=== PATIENT | male | born 1980 | race Caucasian/White ===

== ENCOUNTER 2017-09-17 12:56 | Emergency (ER) | payer MEDICAID ==
--- NOTE | 2017-09-17 14:14 | XRAY Preliminary Report ---
Exam: XR KNEE 4 VIEW LT IMPRESSION: No acute osseous abnormality with minimal/very early degenerative changes. [facility] SITE ID: [id number]
[2017-09-17] MEDS ORDERED: DEXAMETHASONE 10 MG/ML VIAL PO STA (14:21)
--- NOTE | 2017-09-17 14:24 | ED Physician Documentation ---
PD HPI LOWER EXT INJURY - Stated complaint Stated Complaint: L KNEE PAIN - Chief complaint Chief Complaint: Ext Problem - History obtained from History obtained from: Patient, Family - History of Present Illness PD HPI LOW EXT INJURY LOCATION: Left, Knee Type of injury: Twist Where injury occurred: Home Timing - onset: How many days ago (5) Timing - duration: Days (5) Timing - details: Abrupt onset, Still present Improved by: Rest, Ice, Immobilization Worsened by: Moving, Palpating Associated symptoms: Swelling. No: Weakness, Numbness Contributing factors: No: Anticoagulated Similar symptoms before: Diagnosis (has had injury to the other knee previously. ) Recently seen: Not recently seen - Additional information Additional information: Previously well 37-year-old male was seen in his attic at his home doing a project with his legs crossed underneath him. When he got up he had a sore left knee and he was able to go about his business he worked on the following day and over the last 2 days he has developed increased swelling and significant pain. He was unable to sleep last night secondary to excessive pain. He is having pain when he bears weight that will bring tears to his eyes. He has not had a fever. Review of Systems Constitutional: denies: Fever Eyes: denies: Decreased vision Ears: denies: Ear pain Nose: denies: Congestion Throat: denies: Sore throat Cardiac: denies: Chest pain / pressure Respiratory: denies: Dyspnea, Cough GI: denies: Abdominal Pain, Nausea, Vomiting : denies: Dysuria Musculoskeletal: reports: Joint pain, Joint swelling, Pain with weight bearing. denies: Neck pain, Back pain Neurologic: denies: Generalized weakness, Focal weakness, Numbness PD PAST MEDICAL HISTORY - Past Medical History Past Medical History: No - Past Surgical History Past Surgical History: Yes Ortho: ACL reconstruction - Present Medications Home Medications: Ambulatory Orders Medication Instructions Recorded Confirmed Ibuprofen [Motrin] 09/17/17 Tramadol HCl 50 - 100 mg PO Q6HR PRN #20 tablet 09/17/17 - Allergies Allergies/Adverse Reactions: Allergies Allergy/AdvReac Type Severity Reaction Status Date / Time acetaminophen [From Percocet] AdvReac Nausea Verified 09/17/17 13:25 oxycodone [From Percocet] AdvReac Nausea Verified 09/17/17 13:25 - Social History Does the pt smoke?: Yes Smoking Status: Current every day smoker Does the pt drink ETOH?: Yes Does the pt have substance abuse?: No - Immunizations Immunizations are current?: No Immunizations: TDAP >10years/unknown PD ED PE NORMAL - Vitals Vital signs reviewed: Yes (hypertension) - General General: Alert and oriented X 3, No acute distress, Well developed/nourished - HEENT HEENT: Atraumatic, PERRL - Respiratory Respiratory: No respiratory distress - Derm Derm: Normal color, Warm and dry, No rash - Extremities Extremities: No deformity, No edema, Other (There is mild point tenderness to the knee above the patella. There is a palpable effusion but the patella is not ballotable. There is no warmth or erythema to the joint. There is pain to ROM testing and the ligaments are stable to testing. The distal n/v is intact. ) - Neuro Neuro: Alert and oriented X 3, appraiser 2-12 intact, No motor deficit, No sensory deficit, Normal speech Eye Opening: Spontaneous Motor: Obeys Commands Verbal: Oriented GCS Score: 15 - Psych Psych: Normal mood, Normal affect Results - Vitals Vitals: Vital Signs - 24 hr 09/17/17 13:21 Temperature 36.2 C L Heart Rate 79 Respiratory 18 Rate Blood Pressure 143/87 H O2 Saturation 98 Oxygen O2 Source Room air - Rads (name of study) left knee Radiology: Prelim report reviewed (Impression: No osseous abnormality with minimal/very early degenerative changes.), EMP read indepedently, See rad report PD MEDICAL DECISION MAKING - ED course Complexity details: reviewed results, re-evaluated patient, considered differential, d/w patient, d/w family ED course: 37-year-old male with acute left knee pain appears to have a joint effusion and x-rays are without evidence of fracture. The patient is administered 10 mg of dexamethasone and the knee is Dinesh wrapped and we will provide him with some crutches as well as some pain medication. I did offer the patient arthrocentesis and he declined. Departure - Departure Disposition: 01 Home, Self Care Clinical Impression: Knee effusion, left Condition: Stable Instructions: ED Effusion Knee Follow-Up: [facility] [Provider Group] Prescriptions: Tramadol HCl 50 - 100 mg PO Q6HR PRN #20 tablet PRN Reason: Pain
--- NOTE | 2017-09-17 14:27 | XRAY Report ---
EXAM: LEFT KNEE RADIOGRAPHY EXAM DATE: 09/17/2017 02:01 PM. CLINICAL HISTORY: Pain after sitting with knees bent. COMPARISON: None. TECHNIQUE: 4 views. FINDINGS: Bones: No fracture. No suspicious osseous lesion. Small enthesophyte at the quadriceps insertion. Joints: No effusion. No subluxation. Minimal sharpening of the tibial spines and minimal osteophyte f ormation at the patella without significant joint space narrowing. Soft Tissues: Normal. No soft tissue swelling. IMPRESSION: No acute osseous abnormality with minimal/very early degenerative changes. [facility] Referring Provider Line: [phone] SITE ID: [id number]
[2017-09-17 14:31] VITALS: BP 130/79
== END 2017-09-17 14:38 | disposition home or self-care (01) ==
LOC: ED 12:56
DX: M25.462 Effusion, left knee (principal); X50.1XXA Overexertion from prolonged static or awkward postures, initial encounter; Y93.H3 Activity, building and construction; Y92.008 Other place in unspecified non-institutional (private) residence as the place of occurrence of the external cause; F17.200 Nicotine dependence, unspecified, uncomplicated
CPT/HCPCS: 99283

== ENCOUNTER 2018-02-04 09:53 | Outpatient (CLI) | payer MEDICAID ==
--- NOTE | 2018-02-04 14:53 | MRI Report ---
Procedure Date: 02/04/2018 Accession Number: [id number] / [id number] Procedure: MRI - Knee LT W/O CPT Code: FULL RESULT: EXAM: LEFT KNEE MRI WITHOUT CONTRAST EXAM DATE: 02/04/2018 10:40 AM. CLINICAL HISTORY: EFFUSION, LEFT KNEE, CHRONIC LEFT KNEE PAIN. COMPARISON: 09/17/2017 left knee radiographs. TECHNIQUE: Multiplanar, multisequence T1-weighted and fluid-sensitive sequences of the knee without contrast. Other: None. FINDINGS: Bones: There is marrow edema within the patella. No fracture is visualized.. Articular Cartilage: There is shallow partial thickness cartilage loss at the patella. The trochlear cartilage is intact. Medial and lateral compartment articular cartilage is normal. Medial Meniscus: There is a horizontal tear of the posterior horn of the medial meniscus extending to the femoral surface, with a small adjacent para labral cyst measuring approximately 4 mm. Lateral Meniscus: The lateral meniscus is intact. Cruciate Ligaments: The anterior and posterior cruciate ligaments are intact. Collateral Ligaments: The medial collateral and lateral collateral ligamentous structures are intact. Tendons: There are enthesophytes within the distal quadriceps tendon with adjacent mild tendinosis. No quadriceps tendon tear. The patellar tendon is normal. The remainder of the muscles and tendons are unremarkable. Musculature: No edema or fatty atrophy. Other: Moderate effusion. No popliteal cyst. No loose bodies. The medial and lateral retinacula are intact. The subcutaneous tissues and fat pads are unremarkable. IMPRESSION: 1. Horizontal tear of the posterior horn of the medial meniscus extends to the femoral surface, with a 4 mm paralabral cyst projecting posteriorly. 2. Intact cruciate and collateral ligaments. Normal lateral meniscus. 3. Mild quadriceps tendinosis with insertional enthesopathy and adjacent nonspecific marrow edema within the patella. No fracture. 4. Moderate knee joint effusion. No Chandra's cyst. [facility] MUSCULOSKELETAL RADIOLOGY SECTION
== END 2018-02-04 09:54 | disposition home or self-care (01) ==
LOC: DI 09:53
PROVIDERS: ATTEND Orthopaedic Surgery
DX: S83.242A Other tear of medial meniscus, current injury, left knee, initial encounter (principal); M67.962 Unspecified disorder of synovium and tendon, left lower leg; M25.462 Effusion, left knee